=== PATIENT | male | born 1985 | race African-American/Black ===

== ENCOUNTER 2019-02-12 11:18 | Emergency (ER) | payer MEDICAID ==
[~2019-02-12] VITALS: Ht 167.6 cm; Wt 65.0 kg
[~2019-02-12 11:18] MED LIST: DIVA500T3
[2019-02-12 12:18] VITALS: BP 121/55
[2019-02-12] MEDS ORDERED: CEFTRIAXONE SODIUM 250 MG/VIAL IM ONE (13:00)
[2019-02-12] MEDS ORDERED: AZITHROMYCIN 250 MG TABLET PO SCH (13:00)
[2019-02-12] MEDS ORDERED: LIDOCAINE HCL 1% 20ML VIAL (Pyxis) INJ INFIL ONE (13:00)
[2019-02-12] MEDS ORDERED: AZITHROMYCIN 500 MG TABLET PO ONE (13:15)
[2019-02-12 13:40] LABS: KETONES URINE NEGATIVE (NEGATIVE); LEUKOCYTE ESTERASE URINE 3+ (NEGATIVE); NITRITE URINE POSITIVE (NEGATIVE); OCCULT BLOOD URINE 3+ (NEGATIVE); PH URINE 7.5 (4.5-8.0); PROTEIN URINE 1+ (NEGATIVE); SPECIFIC GRAVITY URINE 1.022 (1.005-1.030)
[2019-02-12 13:43] LABS: CLARITY URINE CLOUDY (CLEAR); COLOR URINE BLOODY (YELLOW)
== END 2019-02-12 14:00 | disposition left against medical advice (07) ==
LOC: ER 12:40
DX: N39.0 Urinary tract infection, site not specified (principal); F12.10 Cannabis abuse, uncomplicated; F17.200 Nicotine dependence, unspecified, uncomplicated; Z20.2 Contact with and (suspected) exposure to infections with a predominantly sexual mode of transmission
CPT/HCPCS: 81003; 87077; 87086; 87186; 96372; 99283; J0696; J3490

== ENCOUNTER 2019-10-12 | Emergency (ER) | payer BC, MEDICAID ==
[~2019-10-12] VITALS: Ht 170.2 cm; Wt 66.0 kg
[2019-10-12 00:16] VITALS: BP 123/83
[2019-10-12] MEDS ORDERED: CEFTRIAXONE SODIUM 250 MG/VIAL IM ONE (04:15)
[2019-10-12] MEDS ORDERED: AZITHROMYCIN 500 MG TABLET PO ONE (04:15)
[2019-10-12] MEDS ORDERED: LIDOCAINE HCL 1% 20ML VIAL (Pyxis) INJ INFIL ONE (04:15)
[2019-10-14 09:06] LABS: CHLAMYDIA TRACHOMATIS NAA Negative (Negative)
== END 2019-10-12 04:17 | disposition home or self-care (01) ==
LOC: ER
DX: A64 Unspecified sexually transmitted disease (principal); R56.9 Unspecified convulsions
CPT/HCPCS: 87491; 87591; 96372; 99283; J0696; J3490; Z7610

== ENCOUNTER 2020-07-06 21:25 | Emergency (ER) | payer BC, MEDICAID ==
[~2020-07-06] VITALS: Ht 170.2 cm; Wt 62.0 kg
[2020-07-06 21:45] VITALS: BP 112/63
[2020-07-06] MEDS ORDERED: AZITHROMYCIN 500 MG TABLET PO ONE (23:00)
[2020-07-06] MEDS ORDERED: CEFTRIAXONE SODIUM 250 MG/VIAL IM ONE (23:00)
[2020-07-06] MEDS ORDERED: LIDOCAINE HCL/PF 1% 10 MG/ML 5ML VIAL IJ ONE (23:00)
== END 2020-07-06 23:24 | disposition home or self-care (01) ==
LOC: ER 21:25
DX: R36.9 Urethral discharge, unspecified (principal); Z11.3 Encounter for screening for infections with a predominantly sexual mode of transmission
CPT/HCPCS: 96372; 99283; J0696; J3490

== ENCOUNTER 2021-01-16 01:55 | Emergency (ER) | payer BC, MEDICAID ==
[~2021-01-16] VITALS: Ht 167.6 cm; Wt 62.0 kg
[2021-01-16] MEDS ORDERED: LIDOCAINE HCL 1% 20ML VIAL (Pyxis) INJ INFIL ONE (02:30)
[2021-01-16] MEDS ORDERED: CEFTRIAXONE SODIUM 500 MG/VIAL IM ONE (02:30)
[2021-01-16 02:35] VITALS: BP 112/87
[2021-01-16 02:39] LABS: CLARITY URINE CLOUDY (CLEAR); COLOR URINE YELLOW (YELLOW); KETONES URINE TRACE (NEGATIVE); LEUKOCYTE ESTERASE URINE 3+ (NEGATIVE); NITRITE URINE NEGATIVE (NEGATIVE); OCCULT BLOOD URINE 2+ (NEGATIVE); PROTEIN URINE 1+ (NEGATIVE); SPECIFIC GRAVITY URINE 1.033 (1.005-1.030)
== END 2021-01-16 02:35 | disposition home or self-care (01) ==
LOC: ER 01:55
DX: N39.0 Urinary tract infection, site not specified (principal); F12.10 Cannabis abuse, uncomplicated
CPT/HCPCS: 81003; 87077; 87086; 87186; 96372; 99283; J0696; J3490

== ENCOUNTER 2021-04-20 03:50 | Emergency (ER) | payer MEDICAID ==
[~2021-04-20] VITALS: Ht 167.6 cm; Wt 61.0 kg
[2021-04-20] MEDS ORDERED: DOXY100C2 MT (04:57)
[2021-04-20 04:58] LABS: CLARITY URINE CLEAR (CLEAR); COLOR URINE DARK YELLOW (YELLOW); KETONES URINE TRACE (NEGATIVE); LEUKOCYTE ESTERASE URINE NEGATIVE (NEGATIVE); NITRITE URINE NEGATIVE (NEGATIVE); OCCULT BLOOD URINE NEGATIVE (NEGATIVE); PH URINE 6.5 (4.5-8.0); PROTEIN URINE NEGATIVE (NEGATIVE); SPECIFIC GRAVITY URINE 1.025 (1.005-1.030)
[2021-04-20] MEDS ORDERED: DOXYCYCLINE HYCLATE 100MG CAPSULE PO ONE (05:00)
[2021-04-20] MEDS ORDERED: CEFTRIAXONE SODIUM 500 MG/VIAL IM ONE (05:00)
[2021-04-20] MEDS ORDERED: LIDOCAINE HCL 1% 20ML VIAL (Pyxis) INJ INFIL ONE (05:00)
[2021-04-20 05:45] VITALS: BP 110/66
== END 2021-04-20 05:46 | disposition home or self-care (01) ==
LOC: ER 04:05
DX: Z20.2 Contact with and (suspected) exposure to infections with a predominantly sexual mode of transmission (principal); A63.0 Anogenital (venereal) warts; F12.10 Cannabis abuse, uncomplicated
CPT/HCPCS: 81003; 86592; 86593; 86780; 87491; 87591; 96372; 99283; J0696; J3490

== ENCOUNTER 2021-04-20 12:19 | Emergency (ER) | payer MEDICAID ==
[~2021-04-20] VITALS: Ht 167.6 cm; Wt 60.0 kg
[~2021-04-20 12:19] MED LIST changes: +DOXY100C2 MT
[2021-04-20 12:37] VITALS: BP 110/64
[2021-04-20] MEDS ORDERED: PENICILLIN G BENZATHINE 2,400,000 UNITS/4ML SYR IM ONE (12:45)
== END 2021-04-20 13:35 | disposition home or self-care (01) ==
LOC: ER 12:19
DX: A64 Unspecified sexually transmitted disease (principal); F12.10 Cannabis abuse, uncomplicated
CPT/HCPCS: 96372; 99283; J0561; Z7610

== ENCOUNTER 2021-09-22 02:00 | Emergency (ER) | payer MEDICAID ==
[~2021-09-22] VITALS: Ht 167.6 cm; Wt 63.0 kg
[~2021-09-22 02:00] MED LIST changes: -DOXY100C2 MT; +DOXY100C5 MT
[2021-09-22 02:21] VITALS: BP 123/68
[2021-09-22] MEDS ORDERED: AZITHROMYCIN 500 MG TABLET PO ONE (03:30)
[2021-09-22] MEDS ORDERED: CEFTRIAXONE SODIUM 500 MG/VIAL IM ONE (03:30)
[2021-09-22 04:31] LABS: CLARITY URINE CLEAR (CLEAR); COLOR URINE YELLOW (YELLOW); KETONES URINE TRACE (NEGATIVE); LEUKOCYTE ESTERASE URINE 1+ (NEGATIVE); NITRITE URINE NEGATIVE (NEGATIVE); OCCULT BLOOD URINE NEGATIVE (NEGATIVE); PH URINE 5.5 (4.5-8.0); PROTEIN URINE NEGATIVE (NEGATIVE); SPECIFIC GRAVITY URINE 1.026 (1.005-1.030)
[2021-09-22] MEDS ORDERED: LIDOCAINE HCL/PF 1% 10 MG/ML 5ML VIAL INFIL ONE (05:00)
[2021-09-25 04:11] LABS: NEISSERIA GONORRHOEAE NAA Positive (Negative)
== END 2021-09-22 06:01 | disposition home or self-care (01) ==
LOC: ER 02:00
DX: A64 Unspecified sexually transmitted disease (principal)
CPT/HCPCS: 81003; 87086; 87491; 87591; 96372; 99283; J0696; J3490

== ENCOUNTER 2022-02-12 01:19 | Emergency (ER) | payer MEDICAID ==
[~2022-02-12] VITALS: Ht 167.6 cm; Wt 62.0 kg
[2022-02-12 01:24] VITALS: BP 115/83
[2022-02-12] MEDS ORDERED: DOXYCYCLINE HYCLATE 100MG CAPSULE PO ONE (02:15)
[2022-02-12] MEDS ORDERED: LIDOCAINE HCL 1% 20ML VIAL (Pyxis) INJ INFIL ONE (02:15)
[2022-02-12] MEDS ORDERED: CEFTRIAXONE SODIUM 500 MG/VIAL IM ONE (02:15)
[2022-02-12] MEDS ORDERED: DOXY100C5 MT (03:35)
[2022-02-14 19:08] LABS: NEISSERIA GONORRHOEAE NAA Negative (Negative)
== END 2022-02-12 03:54 | disposition home or self-care (01) ==
LOC: ER 01:19
DX: Z20.2 Contact with and (suspected) exposure to infections with a predominantly sexual mode of transmission (principal); F12.10 Cannabis abuse, uncomplicated
CPT/HCPCS: 87491; 87591; 96372; 99283; J0696; J3490

== ENCOUNTER 2022-08-12 10:06 | Emergency (ER) | payer MEDICAID ==
[~2022-08-12] VITALS: Ht 167.6 cm; Wt 62.0 kg
[2022-08-12 10:36] VITALS: BP 111/72
== END 2022-08-12 12:09 | disposition home or self-care (01) ==
LOC: ER 10:06
DX: R21 Rash and other nonspecific skin eruption (principal); F12.10 Cannabis abuse, uncomplicated
CPT/HCPCS: 99281

== ENCOUNTER 2023-03-10 23:46 | Emergency (ER) | payer MEDICAID ==
[~2023-03-10] VITALS: Ht 167.6 cm; Wt 59.0 kg
[2023-03-11 00:10] VITALS: BP 99/67
[2023-03-11 00:39] LABS: CLARITY URINE CLOUDY (CLEAR); COLOR URINE DARK YELLOW (YELLOW); KETONES URINE TRACE (NEGATIVE); LEUKOCYTE ESTERASE URINE 2+ (NEGATIVE); NITRITE URINE NEGATIVE (NEGATIVE); OCCULT BLOOD URINE TRACE (NEGATIVE); PH URINE 5.5 (4.5-8.0); PROTEIN URINE 1+ (NEGATIVE); SPECIFIC GRAVITY URINE 1.031 (1.005-1.030)
[2023-03-11] MEDS ORDERED: NITR-87 MT (05:35)
[2023-03-11] MEDS ORDERED: DOXY100C5 MT (05:35)
[2023-03-11] MEDS ORDERED: CEFTRIAXONE SODIUM 500 MG/VIAL IM ONE (05:45)
== END 2023-03-11 06:00 | disposition home or self-care (01) ==
LOC: ER 23:46
DX: A64 Unspecified sexually transmitted disease (principal); N30.00 Acute cystitis without hematuria; F12.10 Cannabis abuse, uncomplicated
CPT/HCPCS: 81003; 87077; 87086; 96372; 99283; J0696; Z7610